=== PATIENT | female | born 1980 | race Caucasian/White ===

== ENCOUNTER 2017-10-19 03:33 | Emergency (ER) | payer SELFPAY ==
[~2017-10-19] VITALS: Ht 162.6 cm; Wt 133.3 kg
[~2017-10-19 03:33] MED LIST: OMEP40CA6 PO
[2017-10-19] MEDS ORDERED: SODIUM CHLORIDE FLUSH 10ML SYR IVF ONE (04:00)
[2017-10-19] MEDS ORDERED: KETOROLAC 30 MG/1 ML IVPush ONE (04:00)
[2017-10-19] MEDS ORDERED: MORPHINE SULFATE 4 MG/ML, 1ML IVPush PRN (04:00)
[2017-10-19] MEDS ORDERED: ONDANSETRON ODT 4 MG PO ONE (04:00)
[2017-10-19] MEDS ORDERED: KETOROLAC 30 MG/1 ML ONE ×2 (04:17→04:24)
[2017-10-19] MEDS ORDERED: ONDANSETRON ODT 4 MG ONE ×2 (04:17→04:24)
[2017-10-19] MEDS ORDERED: MORPHINE SULFATE 4 MG/ML, 1ML ONE ×2 (04:17→04:24)
[2017-10-19 04:31] LABS: MICROSCOPIC INDICATED
[2017-10-19 04:35] LABS: CULTURE INDICATED? YES
[2017-10-19 04:48] LABS: BASOPHILS # (AUTO) 0.02 x10^3/uL (0-0.1); BASOPHILS % (AUTO) 0 % (0-1); EOSINOPHILS # (AUTO) 0.08 x10^3/uL (0-0.4); EOSINOPHILS % (AUTO) 1 % (1-7); LYMPHOCYTES # (AUTO) 1.54 x10^3/uL (1-3.4); LYMPHOCYTES % (AUTO) 21 % (22-44); MD NO; MEAN CORPUSCULAR HEMOGLOBIN 28.7 pg (27.0-34.8); MEAN CORPUSCULAR HGB CONC 33.7 g/dL (32.4-35.8); MEAN CORPUSCULAR VOLUME 85.1 fL (80-100); MEAN PLATELET VOLUME 8.4 fL (7.4-10.4); MONOCYTES # (AUTO) 0.17 x10^3/uL (0.2-0.8); MONOCYTES % (AUTO) 2 % (2-9); NEUTROPHILS # (AUTO) 5.39 x10^3/uL (1.8-6.8); NEUTROPHILS % (AUTO) 75 % (42-75); PLATELET COUNT 246 x10^3/uL (130-400); RED CELL DISTRIBUTION WIDTH 14.5 % (9.6-15.2)
[2017-10-19 05:01] LABS: ALANINE AMINOTRANSFERASE 88 U/L (12-78); ALBUMIN 3.4 g/dL (3.4-5.0); ANION GAP 7 mmol/L (5-15); CALCIUM 9.1 mg/dL (8.5-10.1); CHLORIDE 108 mmol/L (98-107); CREATININE 0.98 mg/dL (0.55-1.02)
[2017-10-19 05:06] LABS: ALKALINE PHOSPHATASE 109 U/L (45-117); BILIRUBIN,TOTAL 0.3 mg/dL (0.2-1.0); TOTAL PROTEIN 8.1 g/dL (6.4-8.2)
[2017-10-19] MEDS ORDERED: OXYcodone/APAP 5/325MG TABLET ONE (05:40)
[2017-10-19 05:44] VITALS: BP 148/72
[2017-10-19] MEDS ORDERED: OXYcodone/APAP 5/325MG TABLET PO ONE (06:00)
== END 2017-10-19 06:07 | disposition home or self-care (01) ==
LOC: ED 04:02
DX: N20.1 Calculus of ureter (principal); R73.9 Hyperglycemia, unspecified
CPT/HCPCS: 36415; 74176; 80053; 81001; 83690; 84703; 85025; 87086; 96374; 96375; 99285; J1885; Q0162